=== PATIENT | female | born 1995 | race Hispanic/Latino ===

== ENCOUNTER 2018-10-30 09:54 | Inpatient (IN) | payer OTHER ==
[2018-10-29 10:30] LABS: RPR Titer ND
[2018-10-29 10:46] LABS: Absolute Monocytes 0.4 K/uL (0.1-1.3); Absolute Neutrophil 7.3 K/uL (1.8-8.0); Basophils % 0.3 % (0-1.3); Eosinophils % 1.7 % (0-4.4); Hematocrit 36.5 % (36.0-45.0); Lymphocytes % 20.4 % (15.3-44.8); MPV 8.9 fL (7.6-11.3); RBC Red Blood Cell Count 4.34 M/uL (3.86-4.86)
[2018-10-29 20:48] LABS: RPR (Rapid Plasma Reagin) NON-REACT (NON-REACT)
[~2018-10-30 09:54] MED LIST: CEFAZOLIN/SWI 2gm 2 GM/20 ML SYR IV SCH
[2018-10-30] MEDS ORDERED: Ringers Lactate 1,000 ML IV PRN (09:57)
[2018-10-30] MEDS ORDERED: METHYLERGONOVINE 0.2MG/ML AMP IM PRN (09:57)
[2018-10-30] MEDS ORDERED: CARBOPROST TROME 250 MCG/ML IM PRN (09:57)
[2018-10-30] MEDS ORDERED: Ringers Lactate 1,000 ML IV SCH (10:00)
[2018-10-30 10:21] LABS: Urine Appearance CLEAR; Urine Bilirubin NEGATIVE (NEG); Urine Blood NEGATIVE (NEG); Urine Color YELLOW; Urine Glucose NEGATIVE (NEG); Urine Protein NEGATIVE (NEG)
[2018-10-30 10:35] LABS: Urine Microscopic Reflex NO UMIC
[2018-10-30] MEDS ORDERED: FAMOTIDINE 20 MG/2 ML VIAL IV ONE (10:42)
[2018-10-30] MEDS ORDERED: NA CIT/CITRIC AC 30 ML ORAL UDC PO ONE (11:00)
[2018-10-30] MEDS ORDERED: METOCLOPRAMIDE 10 MG/2mL INJ IV SCH (11:00)
[2018-10-30 11:20] VITALS: BMI 27.8
[2018-10-30] MEDS ORDERED: OXYTOCIN 10 UNIT/ML ML IV ONE (11:33)
[2018-10-30] MEDS ORDERED: MORPHINE SULFATE/PF 1 MG/ML (10 ML AMP) ONE (11:33)
[2018-10-30] MEDS ORDERED: EPHEDRINE SULF 50 MG/ML VIAL ONE (12:07)
[2018-10-30] MEDS ORDERED: DOCUSATE NA/SENNA CONC 1 TAB PO PRN (12:48)
[2018-10-30] MEDS ORDERED: Oxycodone HCl/Acetaminophen 1 TAB TAB PO PRN ×2 (12:48)
[2018-10-30] MEDS ORDERED: BISACODYL 10 MG RECTAL SUPP RECT PRN (12:48)
[2018-10-30] MEDS ORDERED: ONDANSETRON 4 MG (ODT) TAB PO PRN (12:48)
[2018-10-30] MEDS ORDERED: ACETAMINOPHEN 500 MG TAB PO PRN (12:48)
[2018-10-30] MEDS ORDERED: METHYLERGONOVINE 0.2 MG TAB PO PRN (12:48)
[2018-10-30] MEDS ORDERED: KETOROLAC 30 MG/ML INJ IV PRN (12:50)
[2018-10-30] MEDS ORDERED: Ringers Lactate 1,000 ML IV ONE ×2 (14:52→17:01)
--- NOTE | 2018-10-30 17:09 | P.OBGYNHP ---
Certification for Inpatient Patient admitted to: Inpatient With expected LOS: >2 Midnights Patient will require the following post-hospital care: None Practitioner: I am a practitioner with admitting privileges, knowledge of patient current condition, hospital course, and medical plan of care. Services: Services provided to patient in accordance with Admission requirements found in Title 42 Section 412.3 of the Code of Federal Regulations Patient History Date of Service: 10/30/18 Reason for admission: Repeat History of Present Illness: Patient is a 23-year-old 2 para 1001 who presents at 39 weeks gestation for a repeat section. Patient's history of a done in March of 2016. She has been doing well this . care is been complicated by marginal insertion of umbilical cord. She has been followed by MFM. MFM found that the Dopplers were slightly elevated and was following that for some time. They have become normal. Patient has not had any other issues throughout the care she is Rh positive. All labs have been normal she had noninvasive testing done which was low risk. See record for further details. Allergies No Known Drug Allergies Allergy (Verified 10/30/18 10:58) Unknown Home Medications: Vit Calc,Iron,Folic [ Vitamins] 1 each PO DAILY 03/25/16 - Past Medical/Surgical History Diabetic: No -: ovarian cysts -: C/S 2015 - Social History Smoking Status: Never smoker Alcohol use: No CD- Drugs: No Caffeine use: Yes Place of Residence: Home Review of Systems 10-point ROS is otherwise unremarkable Physical Examination - Vital Signs Temperature: 97.8 F Blood Pressure: 102/61 Pulse: 78 Respirations: 16 - General General: Alert and in no apparent distress HEENT: Atraumatic Neck: Supple Respiratory: Normal air movement Cardiovascular: No edema, Normal pulses Integumentary: No rashes Neurological: Normal gait - Female Pelvic External genitalia: Normal Vagina: Normal Cervix: Dilation (Closed) Uterus: Gravid (Appropriate) - Obstetrics heart rate tracing: Category 2 Amniotic membrane: Intact Assessment and Plan - Plan Patient is a 23-year-old 2 para 1001 at 39 weeks gestation who presents for admission due to repeat section. Patient has no questions she is doing well. Ancef will be given. Routine postoperative care will be administered. Discharge Plan: Home Plan to discharge in: 48 Hours - Advance Directives Does patient have a Living Will: Yes Does patient have a Durable POA for Healthcare: Yes
--- NOTE | 2018-10-30 17:10 | P.OP ---
Home Theater Expert: Donald Nunez Preoperative diagnosis: Term prior Postoperative diagnosis: Same and uterine adhesions Primary procedure: Repeat low-transverse section Secondary procedure: none Anesthesia: Spinal Estimated blood loss: 800cc Specimen: Cord blood, placenta Operative Technique: The patient was taken to the operating room where spinal anesthesia was administered without difficulty. The patient was prepped and draped in the usual sterile fashion in the dorsal supine position with a leftward tilt. A Pfannenstiel skin incision was made with the scalpel and carried through to the underlying layer of fascia using the Bovie. The fascia was incised in the midline and extended laterally using Boland scissors. Lynnette clamps were used to elevate the superior aspect of the fascial incision, which was elevated, and the underlying rectus muscles were dissected off bluntly and using Boland scissors. Attention was then turned to the inferior aspect of the fascial incision, which in similar fashion was grasped with Lynnette clamps, elevated, and the underlying rectus muscles were dissected off bluntly and using the Bovie. The rectus muscles were dissected in the midline. The peritoneum was identified and entered using Metzenbaum scissors; this incision was extended superiorly and inferiorly with good visualization of the bladder. The bladder blade was inserted. Adhesions were then noted between the uterus and the anterior abdominal wall. The vesicouterine layer was identified and tented and then entered with the Metzenbaum scissors. This incision was extended laterally and the bladder flap was created digitally. The bladder blade was reinserted. The lower uterine segment was incised in a transverse fashion using the scalpel and extended using bandage scissors as well as manual traction. Clear fluid was noted. The infant was subsequently delivered using a Danni vacuum due to anteflexed head and difficulty in delivering the 's head without the Danni. The nose and mouth were bulb suctioned. The cord was clamped and cut. The was subsequently handed to the awaiting nursery nurse. The placenta was delivered spontaneously intact with a three-vessel cord noted. The uterus was not exteriorized due to uterine to abdominal wall adhesions. The uterine incision was repaired in 2 layers using 0 chromic sutures. Hemostasis was visualized. The uterine incision was reexamined and it was noted to be hemostatic. The rectus muscles were reapproximated in the midline using 0 Vicryl. The fascia was closed with 1 Vicryl suture, the subcutaneous layer was closed with 2-0 plain gut, and the skin was closed with 3.0 vicryl on a Will needle. Sponge, lap, and instrument counts were correct x2. The patient was stable at the completion of the procedure and was subsequently transferred to the recovery room in stable condition. Complications: None Drain(s): Urinary catheter Transferred to: Recovery Room Condition: Good
[2018-10-31 04:51] LABS: Absolute Monocytes 0.7 K/uL (0.1-1.3); Basophils % 0.5 % (0-1.3); Eosinophils % 1.2 % (0-4.4); Hematocrit 36.6 % (36.0-45.0); Lymphocytes % 14.2 % (15.3-44.8); MPV 8.8 fL (7.6-11.3); Monocytes % 5.1 % (3.3-12.3); RBC Red Blood Cell Count 4.35 M/uL (3.86-4.86)
[2018-10-31] MEDS: IBUPROFEN 400 MG TAB PO PRN ×2 (09:18→16:28)
[2018-10-31] MEDS ORDERED: IBUPROFEN 200 MG TAB PO ONE ×2 (09:26→16:36)
[2018-10-31] MEDS: SIMETHICONE 125 MG TAB PO PRN ×2 (10:55→22:42)
[2018-10-31] MEDS ORDERED: FAMOTIDINE 20 MG/2 ML VIAL IV ONE (11:00)
--- NOTE | 2018-10-31 21:53 | P.PN ---
Date of Service: 10/31/18 The patient is postop day 1 from a repeat section. She is doing well. She is tolerating diet. Her pain is well controlled. She is afebrile. She is bonding well with the baby and is breast-feeding. She is having some trouble voiding. A straight cath was done this morning and 700cc of clear urine was removed. Patient denies dysuria. States she just feels uncomfortable. She is also c/o bloating. Vital sign stable Selected Entries 10/31/18 10/31/18 07:57 08:50 Temperature 97.8 F Pulse Rate 81 Respiratory 18 Rate Blood Pressure 108/62 Pain Level 5 Laboratory Tests 10/29/18 10/31/18 10:21 04:11 WBC 9.9 13.9 H D Hgb 12.6 12.6 Hct 36.5 36.6 Plt Count 289 264 General: Resting in bed no distress Head and neck: Normocephalic atraumatic, supple Respiratory: Symmetric nonlabored breathing Abdomen: Soft, mildly distended, mildly tender. Incision clean dry and intact Bilateral lower extremities: No clubbing cyanosis or edema. Assessment and plan patient is postop day 1 after repeat section she is doing well. Pain is well controlled. Discontinue IV discontinue Mcfarlane catheter. Encourage patient to ambulate. Medications ordered for distention/ constipation. Recommend NSAIDS vs narcotics. Possible discharge home tomorrow.
[2018-10-31] MEDS: IBUPROFEN 200 MG TAB PO PRN (22:42)
[2018-11-01 04:28] LABS: HBsAG Nonreactive (Nonreactive)
[2018-11-01] MEDS: IBUPROFEN 200 MG TAB PO PRN (07:35)
[2018-11-01 08:03] VITALS: BP 108/65; TEMP 97.3
--- NOTE | 2018-11-05 22:18 | P.DS ---
Admission Date: 10/30/18 Discharge Date: 11/01/18 Disposition: ROUTINE DISCHARGE Discharge Condition: GOOD Reason for Admission: Repeat Brief History of Present Illness: Patient is a 23-year-old 2 para 1001 who presents at 39 weeks gestation for a repeat section. Patient's history of a done in March of 2016. She has been doing well this . care is been complicated by marginal insertion of umbilical cord. She has been followed by MFM. MFM found that the Dopplers were slightly elevated and was following that for some time. They have become normal. Patient has not had any other issues throughout the care she is Rh positive. All labs have been normal she had noninvasive testing done which was low risk. See record for further details. Hospital Course: Patient did well during her stay. She did have one episode of urinary retention that was treated with a straight catherization following the delivery. It has since resolved and she is voiding without issues. She is tolerating a regular diet. She has no issues. Her pain is well managed. She is bonding well with the baby. Vital Signs/Physical Exam: Temp Pulse Resp BP Pulse Ox 97.3 F 93 H 18 108/65 11/01/18 07:30 11/01/18 07:30 11/01/18 07:30 11/01/18 07:30 General: Alert, In no apparent distress HEENT: Atraumatic Neck: Supple Respiratory: Normal air movement Cardiovascular: No edema, Normal pulses Gastrointestinal: Soft and benign, Other (incision clean dry and intact), Tenderness (mild) Laboratory Data at Discharge: WBC 13.9 K/uL (4.3-10.9) H D 10/31/18 04:11 Hgb 12.6 g/dL (12.0-15.0) 10/31/18 04:11 Hct 36.6 % (36.0-45.0) 10/31/18 04:11 Plt Count 264 K/uL (152-406) 10/31/18 04:11 Home Medications: Vit Calc,Iron,Folic [ Vitamins] 1 each PO DAILY 03/25/16 Diet: Regular Activity: No lifting more than 10 lbs Followup: Benjie Mauricio DO [ACTIVE - CAN ADMIT] - 1 Week
== END 2018-11-01 11:20 | disposition home or self-care (01) | DRG 788 ==
LOC: 2ND-WC 09:54
PROVIDERS: ADMIT Student in an Organized Health Care Education/Training Program; ATTEND Student in an Organized Health Care Education/Training Program
PROC: 10D00Z1 Extraction of Products of Conception, Low, Open Approach (ICD-10-PCS; principal; 2018-10-30 11:30)
DX: O34.211 Maternal care for low transverse scar from previous cesarean delivery (principal); O43.123 Velamentous insertion of umbilical cord, third trimester; Z3A.39 39 weeks gestation of pregnancy; Z37.0 Single live birth
CPT/HCPCS: 36415; 81003; 85025; 86592; 86850; 86900; 86901; 87340; 88307; J0690; J2210; J2590; J2765

== ENCOUNTER 2024-01-05 08:10 | Emergency (ER) | payer OTHER, BC ==
--- OUTSIDE RECORDS SUMMARY | 2024-01-05 08:13 | XMS REPORT | Continuity of Care Document ---
Author Name Unknown Address [address] [place] [address] [facility] thconnect Address [address] [place] [address] Care Team Providers Care Product Management Analyst Name Role Phone JAMESLONDON Primary Care Physician Unavailab le Pob, Adc Lab Main Attending Clinician Kaitlin Arrington MD Attending Clinician [phone] KAITLIN BAKER Attending Clinician Unavailjose manuel nicole Doctor Unassigned, [place] Attending Clinician U navailable [email or web address] Attending Clinician Unavaila michelle RADIOLOGY Attending Clinician Unavailable Radiology Attending Clinician Unavailable Suzanne Silverio Attending Clinician SUZANNE NUR Attending Clinician Maral vailable 2, Adc Lab Attending Clinician Unavailable Angle Reis MD Attending Clinician ANGLE REIS Attending Clinician Frances nicole Only, Adc Pob2 Test Attending Clinician Unavaila Asher Moses DO Attending Clinician [phone] ASHER DE SANTIAGO Attending Clinician Unavail able [email or web address]_S Admitting Clinician Gusa michelle Payers Payer Name Policy Type Policy Number Effective Date Expirati on Date Source [place] [id number] 2023 00:00:00 Problems Condition Name Condition Details Condition Category Status Onset Date Resolution Date Last Treatment Date Treating Clinician Comments Source Acute vaginitis Acute Vaginitis Problem Active 12-27 00:00: 00 [facility] Thrombocyt osis Thrombocyt osis Problem Active 2021-10 0 00:00: 00 [facility] Pure hyperchole sterolemia Pure Hyperchole sterolemia Problem Active 2021-10 0 00:00: 00 [facility] Acute cystitis Acute Cystitis Problem Active 2020-10 0 00:00: 00 [facility] Irregular periods Irregular Periods Problem Active 2020-10 0 00:00: 00 [facility] Non-scarri ng alopecia Non-scarri ng Alopecia Problem Active 11-18 00:00: 00 [facility] Spontaneou s ecchymosis Spontaneou s Ecchymosis Problem Active 11-18 00:00: 00 [facility] Venereal disease screening Venereal Disease Screening Problem Active 11-18 00:00: 00 [facility] Constipati on Constipati on Problem Active 06-20 00:00: 00 [facility] Gynecologi george examinatio n abnormal Gynecologi george Examinatio n Abnormal Problem Active 06-20 00:00: 00 [facility] Candidiasi s of vagina Candidiasi s of Vagina Problem Active 11-22 00:00: 00 [facility] Vulvodynia Vulvodynia Problem Active 2016-10 1 00:00: 00 [facility] Contracept ion care education Contracept ion Care Education Problem Active 05-16 00:00: 00 [facility] Gynecologi c examinatio n Gynecologi c Examinatio n Problem Active 05-16 00:00: 00 [facility] Condyloma acuminatum of the anogenital region Condyloma Acuminatum of the Anogenital Region Problem Active 2015-10 00:00: 00 [facility] Polymenorr hea Polymenorr hea Problem Active 2015-10 00:00: 00 [facility] Excessive menstruati on with irregular cycle Excessive Menstruati on with Irregular Cycle Problem Active 2015-10 00:00: 00 [facility] Secondary amenorrhea Secondary Amenorrhea Problem Active 2014-10 0 00:00: 00 [facility] Pelvic and perineal pain Pelvic and Perineal Pain Problem Active 2014-10 00:00: 00 [facility] Female genital organ symptoms Female Genital Organ Symptoms Problem Active 04-11 00:00: 00 [facility] Infectious colitis, enteritis and gastroente ritis Infectious Colitis, Enteritis and Gastroente ritis Problem Active 04-11 00:00: 00 [facility] Breast finding Breast Finding Problem Active 01-27 00:00: 00 [facility] Medical Allergies, Adverse Reactions, Alerts Allergy Name Allergy Type Status Severity Reaction(s) Onset Date Inactive Date Treating Clinician Comments Source NO KNOWN ALLERGIE S Drug Class Active [facility] Social History Social Habit Start Date Stop Date Quantity Comments Source Gender identity [facility] Sexual orientation U [facility] Sex Assigned At 1995 00:00:00 1995 00:00:00 [facility] Smoking Status Start Date Stop Date Source Tobacco smoking consumption unknown [facility] Never Smoker [facility] Medical Medications Ordered Medication Name Filled Medication Name Start Date Stop Date Current Medication? Ordering Clinician Indication Dosage Frequency Signature (SIG) Comments Components Source No known medications 12-07 14:03: 45 No [facility] No known medications 12-07 14:03: 45 No No known medication s [facility] No known medications 12-07 14:03: 45 No No known medication s [facility] No known medications 12-07 14:03: 45 No No known medication s [facility] No known medications 12-07 14:03: 45 No No known medication s [facility] No known medications 12-07 14:03: 45 No No known medication s [facility] No known medications 12-07 14:03: 45 No No known medication s [facility] Hair Vitamins tablet Hair Vitamins tablet No Hair Vitamins tablet [facility] Medical metronidazo le 500 mg tablet 1 tablet; twice a day; 7 day(s) metronidazo le 500 mg tablet 1 tablet; twice a day; 7 day(s) No metronidaz ole 500 mg tablet 1 tablet; twice a day; 7 day(s) [facility] Probiotic Pearls Probiotic Pearls No [facility]biotic Pearls [facility] Vital Signs Vital Name Observation Time Observation Value Comments S jones Body Weight 2023-12-28 00:00:00 126.2 [lb_av] [facility] Height 2023-12-28 00:00:00 61 [in_i] [facility] BMI (Body Mass Index) 2023-12-28 00:00:00 23.8 kg/m2 [facility] Medical Procedures Procedure Date / Time Performed Performing Clinician Source NOTICE OF PRIVACY PRACTICES 2023-12-29 20:31:37 Doctor Unassigned, [place] [facility] BI ULTRASOUND BREAST COMPLETE BILATERAL 2023-08-16 19:35:29 Janae Zhang [facility] CONSENT/REFUSAL FOR DIAGNOSIS AND TREATMENT 2023-05-25 14:40:11 Doctor Unassigned, [place] [facility] EXTERNAL PROVIDER RECORDS 2022-09-08 06:01:00 Doctor Unassigned, [place] [facility] PHYSICIAN ORDERS 2022-08-31 06:01:00 Doctor Hermes signed, [place] [facility] THYROID STIMULATING HORMONE 2022-07-29 13:01:00 Smiley [facility] HEPATIC FUNCTION PANEL ([id number]) (ALB,T.PRO,BILI T,BU/BC,ALT,AST,ALK PHOS) 2022-07-29 13:01:00 Smiley [facility] BASIC METABOLIC PANEL (NA, K, CL, CO2, GLUCOSE, BUN, CREATININE, CA) 2022-07-29 13:01:00 Smiley [facility] LIPID PANEL ([id number])(TOTAL CHOLESTEROL, TRIGLYCERIDES, HDL) 2022-07-29 13:01:00 Smiley [facility] CBC WITH DIFF 2022-07-29 13:01:00 [facility] 2022-07-29 05:01:00 Doctor Hermes signed, [place] [facility] Augmentation Mammoplasty 2020-05-16 00:00:00 [facility] Delivery 2018-10-10 00:00:00 [facility] Delivery 2015-10-10 00:00:00 [facility] Plan of Care Planned Activity Planned Date Details Comments Source Diagnostic Test Pending 2023-12-28 00:00:00 urinalysis, dipstick [code = urinalysis, dipstick] [facility] Diagnostic Test Pending 2023-12-28 00:00:00 hepatitis C Ab, serum [code = hepatitis C Ab, serum] [facility] Diagnostic Test Pending 2023-12-28 00:00:00 HBsAg (hepatitis B surface Ag), serum [code = HBsAg (hepatitis B surface Ag), serum] [facility] Diagnostic Test Pending 2023-12-28 00:00:00 RPR (rapid plasma reagin), serum [code = RPR (rapid plasma reagin), serum] [facility] Diagnostic Test Pending 2023-12-28 00:00:00 HIV 1+2 AB + HIV 1 p24 Ag, qualitative immunoassay, serum [code = HIV 1+2 AB + HIV 1 p24 Ag, qualitative immunoassay, serum] [facility] Diagnostic Test Pending 2023-12-28 00:00:00 CT + NG RNA, urine [code = CT + NG RNA, urine] [facility] Diagnostic Test Pending 2023-12-28 00:00:00 unlisted lab [code = unlisted lab] [facility] Future Appointment 2024-08-13 08:45:[address]; [facility] [address], [place] [address] [facility] Encounters Start Date/Time End Date/Time Encounter Type Admission Type Attending [facility] Care Department Encounter ID Source 2023-12-29 15:30:00 2023-12-29 15:45:00 Linoleum Tile Floor Layer Visit Pob, Adc Lab Kaitlin Mitchell [facility] 1.2.840.114 350.1.13.10 4.2.7.2.686 [id number] [facility] 2023-12-29 15:30:00 2023-12-29 15:30:00 Outpatient KAITLIN GASCA [facility] [id number] [facility] 2023-12-29 00:00:00 2023-12-29 00:00:00 Orders Only Doctor Unassigned, [place] [facility] 1..840.114 350.1.13.10 4.2.7.2.686 [id number] [facility] 2023-12-28 00:00:00 2023-12-28 00:00:00 Outpatient GC_GCBZW_Ka diyala_S [facility] [id number] [facility] 2023-12-28 00:00:00 2023-12-28 00:00:00 Shaneka Pearson, STULL HEWER: [address], [place] [address] , Ph. [facility] - GC_GCBZW_La [facility]* [id number] [facility] 2023-12-27 00:00:00 2023-12-27 00:00:00 Outpatient GC_GCBZW_Ka diyala_S [facility] [id number] [facility] 2023-08-16 13:02:23 2023-08-16 23:59:00 Outpatient R RADIOLOGY [facility] [id number] [facility] 2023-08-16 13:00:00 2023-08-16 23:59:00 Hospital Encounter Radiology [facility] 1..840.114 350.1.13.10 4.2.7.2.686 [id number] [facility] 2023-08-16 12:45:00 2023-08-16 13:00:00 Linoleum Tile Floor Layer Visit Pob, Adc Lab Main Radiology [facility] PROFESSIO [facility] 1..840.114 350.1.13.10 4.2.7.2.686 [id number] [facility] 2023-08-09 00:00:00 2023-08-09 00:00:00 Outpatient GC_GCBZW_Ka diyala_S [facility] [id number] [facility] 2023-07-28 00:00:00 2023-07-28 00:00:00 Outpatient GC_GCBZW_Ka diyala_S [facility] [id number] [facility] 2023-05-25 10:13:00 2023-05-25 23:59:00 Hospital Encounter Suzanne Garcia [facility] 1.2.840.114 350.1.13.10 4.2.7.2.686 [id number] [facility] 2023-05-25 00:00:00 2023-05-25 23:59:00 Outpatient R YVONNE OROSCO SUZANNE [facility] EHA [id number] [facility] 2023-05-25 10:30:00 2023-05-25 10:45:00 Linoleum Tile Floor Layer Visit Pob, Adc Lab Jadon Baker [facility] 1.2.840.114 350.1.13.10 4.2.7.2.686 [id number] [facility] 2023-05-25 10:30:00 2023-05-25 10:30:00 Outpatient Blair [facility] [id number] [facility] 2023-05-25 00:00:00 2023-05-25 00:00:00 Orders Only Doctor Unassigned, [place] [facility] 1.2840.114 350.1.13.10 4.2.7.2.686 [id number] [facility] 2022-09-08 00:00:00 2022-09-08 00:00:00 Orders Only Doctor Unassigned, [place] [facility] 1.2840.114 350.1.13.10 4.2.7.2.686 [id number] [facility] 2022-08-31 11:00:00 2022-08-31 11:15:00 Linoleum Tile Floor Layer Visit 2, Adc Lab Angle Reis [facility] 1.840.114 350.1.13.10 4.2.7.2.686 [id number] [facility] 2022-08-31 11:00:00 2022-08-31 11:00:00 Outpatient R SMILEY [facility] [id number] [facility] 2022-08-31 00:00:00 2022-08-31 00:00:00 Orders Only Doctor Unassigned, [place] [facility] 1.840.114 350.1.13.10 4.2.7.2.686 [id number] [facility] 2022-07-29 08:00:00 2022-07-29 08:08:26 Linoleum Tile Floor Layer Visit 2, Adc Lab Smiley [facility] 1.840.114 350.1.13.10 4.2.7.2.686 [id number] [facility] 2022-07-29 08:00:00 2022-07-29 08:00:00 Outpatient R SMILEY [facility] [id number] [facility] 2022-07-29 00:00:00 2022-07-29 00:00:00 Orders Only Doctor Unassigned, [place] [facility] .840.114 350.1.13.10 4.2.7.2.686 [id number] [facility] 2021-12-07 15:00:00 2021-12-07 15:00:00 Outpatient R [facility] [id number] [facility] 2021-12-07 15:00:00 2021-12-07 15:00:00 Laboratory Only Only, Adc Pob2 Test Asher De Santiago [facility] 1.840.114 350.1.13.10 4.2.7.2.686 [id number] [facility] 2021-12-07 15:00:00 2021-12-07 13:59:31 Outpatient R ASHER DE SANTIAGO [facility] [id number] [facility] 2021-07-30 12:30:00 2021-07-30 12:30:00 Outpatient R ANGLE REIS [facility] [id number] [facility] Notes Date/Time Note Provider Source 2023-12-29 15:30:00 EW+tH+SBYJkFD+OlmJBi lCK3K8RSayrGzj QIDeY0sqrMtdzD1KUOp19AITfapEl69339 -03-21T15:30:00 Images from the original note were not included.Venipuncture collection performed by clean technique on the right anticubitus. Total of 1 attempts were made. Slight pressure and a bandage/dressing were applied to the site(s). The patient experienced no complications. The following specimens were processed according to instructions and sent to [facility] laboratories per lab order on 12/29/2023:LT BLUESST 4RED 1LAV 1PPTDK GREEN (LiHep)DK GREEN (SodH)GRAYDK BLUE (K2)DK BLUE (S)ACDBlood CultureNIPT/NTD 41132-2Mwipa ChtwRU7315-83-11O85:53:34Nurse NoteTXT1.2.840.282072.1.13.104.2.7 .2.415205|[id number] for patient jcfb36236-2Cojew NoteLNNARRATIVEFormatted C-CDA narrative textUTMBUT - [address] Go[id number] 81JZQGSSSORBZMUZBBDIDNDB9228-56-70 T15:53:341.2.840.704281.1.72.3.15| 1.2.840.345098.1.13.104.2.7.2.7278 [id number] [facility] 2023-05-25 10:30:00 BrcJv0nroEPwm91bvk5+ MEM7rAUoL2/fvl Nz63WhS/5DhoTA8BPFGUNAUQSBISsb0269 -08-16T10:30:00 New Employee Hire drug screen 60139-7Wmqfn SrxhCV2281-98-33X51:03:31Nurse NoteTXT1.2.840.577712.1.13.104.2.7 .2.936466|[id number] for patient mokb66901-8Lfmoq [id number] [address] Yy[id number] 92VXQFDXRKFTWOXHTAAJRXLS7575-53-82 T10:03:311.2.840.814533.1.72.3.15| 1.2.840.349290.1.13.104.2.7.2.7278 [id number] Rachel Perez [facility]"
[2024-01-05] MEDS ORDERED: IBUPROFEN 400 MG TAB ONE (08:23)
[2024-01-05] MEDS ORDERED: IBUPROFEN 200 MG TAB PO ONE (08:23)
--- NOTE | 2024-01-05 09:23 | RAD REPORT ---
EXAM DESCRIPTION: RAD - Knee Right 3 View - 01/05/2024 8:53 am CLINICAL HISTORY: PAIN COMPARISON: No comparisons FINDINGS: No fracture or dislocation seen.
--- NOTE | 2024-01-05 09:24 | RAD REPORT ---
EXAM DESCRIPTION: RAD - Hand Left 3 View - 01/05/2024 8:53 am CLINICAL HISTORY: PAIN COMPARISON: No comparisons FINDINGS: No fracture or dislocation seen.
--- NOTE | 2024-01-05 09:24 | RAD REPORT ---
EXAM DESCRIPTION: RAD - Hip Right 2 View - 01/05/2024 8:53 am CLINICAL HISTORY: PAIN COMPARISON: No comparisons FINDINGS: No fracture or dislocation seen.
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
[2024-01-05 11:03] VITALS: BP 121/88; TEMP 98; O2SAT 100
== END 2024-01-05 10:32 | disposition home or self-care (01) ==
LOC: ER 08:10
DX: S80.211A Abrasion, right knee, initial encounter (principal); S60.222A Contusion of left hand, initial encounter; V49.49XA Driver injured in collision with other motor vehicles in traffic accident, initial encounter
CPT/HCPCS: 99285